=== PATIENT | male | born 1980 | race Caucasian/White ===

== ENCOUNTER 2021-05-30 10:15 | Emergency (ER) | payer OTHER, SELFPAY ==
[2021-05-30 10:59] VITALS: BP 123/83; PULSE 117; RESP 20; TEMP 37.2; O2SAT 94; BMI 27.8
[2021-05-30 11:21] LABS: UTC Strep Screen (Rapid) Positive (Negative)
--- NOTE | 2021-05-30 11:35 | HMH.EDUTC ---
[facility] – [place] Disposition Clinical Impression: Strep throat, Bronchitis Disposition: Home, Self-Care Condition on Discharge: Good Instructions: DI for Strep Throat, Strep Throat Additional Instructions: Drink plenty of fluids. Take tylenol or ibuprofen for pain or fever. Take the medications as directed. Follow up with your regular doctor. GO TO THE ER FOR ANY WORSENING SYMPTOMS Throw your tooth brush away and get a new one. Quarantine until you know the results of your covid-19 test. If it is positive, the health department should call you and give you further instructions about your length of Quarantine and other things. Notify your school or workplace of your results and follow their instructions regarding return to work/school. Don't start the oral steroids until tomorrow, since you had the shot here today. Prescriptions: Brompheniramine/Pseudoephed/Dm [Bromfed Dm Cough Syrup] 5 ml PO Q6HP PRN #240 ml PRN Reason: Cough Transmission Status: Pending to [id number] methylPREDNISolone [Medrol] 4 mg PO DIRECTED 6 Days #21 packet Transmission Status: Pending to [id number] Referrals: Provider,Referral, [Primary Care Provider] - Forms: Work/School Release Time of Disposition: 11:48 Medical Decision Making - Medical Records Medical records reviewed: No: I reviewed the patient's medical records. - Eusebio Inquiry Pt receiving controlled substance: No Vital Signs: 05/30/21 10:59 Temperature 99 F Temperature Source Oral Pulse Rate [Right] 117 H Respiratory Rate 20 Blood Pressure [Right Arm] 123/83 Blood Pressure Mean [Right Arm] 96 02 Sat by Pulse Oximetry 94 L - Lab Data Lab results reviewed: Yes: I reviewed the patient's lab results. Lab Results 05/30/21 11:21: Strep Scn Rapid Clinic Positive A [facility] [place] HPI - General Stated complaint: sore troat, cough/congestion, weakness/muscle pain Time Seen by Provider: 05/30/21 11:35 Mode of Arrival: Ambulatory Source of Information: Patient Limitations: No Limitations Description of Symptoms (Recalled from Triage Doc. by RN): pt c/o a productive cough, sore throat, myalgia and fever. pt states he had an E-visit with his DR on 05/26. pt states they swabbed him from his vehicle and he was negative for strep, flu and covid. HEENT Symptoms (Recalled from RN notes): No Resp Symptoms (Recalled from RN notes): Yes (cough) Skin Symptoms (Recalled from RN notes): No MS Symptoms (Recalled from RN notes): No Functional Status (Recalled from RN notes): wnl - History of Present Illness Provider Complaint: He states that he has had a sore throat for the past 3 days. He has been coughing and running a fever. He was swabbed for flu and covid-19 on 05/26 and both were negative. - Related Data Previous Rx's Medication Instructions Recorded Brompheniramine/Pseudoephed/Dm 5 ml PO Q6HP PRN #240 ml 05/30/21 [Bromfed Dm Cough Syrup] methylPREDNISolone [Medrol] 4 mg PO DIRECTED 6 Days #21 05/30/21 packet Allergies Allergy/AdvReac Type Severity Reaction Status Date / Time No Known Allergies Allergy Verified 05/30/21 11:04 - Worker's Comp Is this a Worker's Comp case?: No [facility] History - Hepatitis A Screen Drug use history?: No High risk sexual behaviors?: No History of sexually transmitted infection?: No Currently employed?: No Childcare worker?: No Do you have indoor plumbing?: Yes Do you have electricity?: Yes Attestation statement:: This patient has been screened for Hepatitis A risk factors. I have reviewed the patient's past medical history: Yes ROS Obtained: Yes All systems reviewed & no additional complaints - Constitutional Constitutional: Reports chills, Reports fever(s), Reports poor appetite, Reports malaise - Eyes Eyes: Denies eye discharge - ENT Ears, Nose, Mouth, and Throat: Reports as per HPI - Cardiovascular Cardiovascular: Denies chest pain - Respiratory Respiratory: Repor
[2021-05-30 12:05] VITALS: BP 123/83; PULSE 117; RESP 20; TEMP 37.2
== END 2021-05-30 12:12 | disposition home or self-care (01) ==
PROVIDERS: Emergency Provider Nurse Practitioner Family
DX: J02.0 Streptococcal pharyngitis (principal); J20.9 Acute bronchitis, unspecified
CPT/HCPCS: 87880; 96372; 99202; G0463; J0561